=== PATIENT | male | born 1995 | race African-American/Black ===

== ENCOUNTER → 2019-08-23 | Outpatient (CLI) | payer OTHER ==
--- NOTE | 2019-08-23 10:19 | US ---
EXAMINATION TYPE: US scrotum with doppler. TECHNIQUE: Grayscale and color Doppler Duplex imaging performed of the scrotum. DATE OF EXAM: 08/23/2019 COMPARISON: NONE CLINICAL HISTORY: 24-year-old male R19.09 PELVIC SWELLING. Swelling left groin that comes and goes FINDINGS: EXAM MEASUREMENTS: TESTICLES: Right Testicle: 4.1 x 2.4 x 2.7 cm Left Testicle: 4.1 x 2.2 x 2.5 cm EPIDIDYMIS HEAD: Right Epididymis: 1.2 cm with a 5 mm cyst. Left Epididymis: 1.3 cm Doppler performed to assess for testicular vascularity; good bilateral color flow and waveforms are s een. There is no evidence of testicular torsion. Presence of hydroceles: Yes, bilaterally, small on the right and [id number] on the left. Presence of varicoceles: Yes, bilaterally, small on both sides Flatwork Finisher notes: At patient's left groin, area of swelling, just superior to the iliac vessels, the re is a discrete hypoechoic area that appears to move upon valsalva. On the saved images, the pipeline integrity engineer indicates that there is peristalsis in this area. IMPRESSION: 1. No sonographic evidence for testicular torsion or epididymoorchitis. 2. Small bilateral varicoceles. Small hydrocele on the right and [id number] on the left. 3. Targeted scanning along the left groin at the area of swelling shows a possible bowel containing i nguinal hernia as the pipeline integrity engineer indicates that the structure moves and has peristalsis.
--- NOTE | 2019-08-30 11:27 | HM ---
HOLTER MONITOR REPORT 48 HOUR HOLTER MONITOR: Baseline rhythm is a sinus mechanism with borderline intraventricular conduction delay. The average rate was 67 beats per minute. Minimum was 41, maximum 130 beats per minute. Ventricular ectopic activity was present in the form of rare single PACs, and single PVCs. There was no episode of atrial fibrillation. Symptoms of chest pressure did not correlate with any dysrhythmia. CONCLUSION: 1. Sinus mechanism with baseline rhythm. 2. Rare ventricular ectopic activity. 3. Rare supraventricular ectopic activity. 4. Symptoms did not correlate with any dysrhythmia. MMODL / IJN: [id number] /
== END | disposition home or self-care (01) ==
LOC: RADUSWWP 09:11
PROVIDERS: ATTEND Internal Medicine
DX: I86.1 Scrotal varices (principal); N43.3 Hydrocele, unspecified; I49.3 Ventricular premature depolarization
CPT/HCPCS: 76870; 93225; 93226; 93975

== ENCOUNTER → 2020-03-10 | Outpatient (CLI) | payer OTHER ==
--- NOTE | 2020-03-10 08:44 | US ---
EXAMINATION TYPE: US abdomen complete DATE OF EXAM: 03/10/2020 COMPARISON: NONE CLINICAL HISTORY: 24-year-old male R74.01 Elevated Liver Enzymes. TECHNIQUE: Multiple sonographic images of the abdomen are obtained. FINDINGS: EXAM MEASUREMENTS: Liver Length: 13.0 cm Gallbladder Wall: 0.2 cm CBD: 0.4 cm Spleen: 8.8 cm Right Kidney: 10.5 x 4.4 x 4.4 cm Left Kidney: 11.2 x 4.6 x 5.4 cm Pancreas: Hypoechoic area visualized in the pancreatic body measuring 0.8 x 0.5 x 0.6 cm Liver: wnl Gallbladder: wnl Evidence for sonographic Hollis's sign: No CBD: wnl Spleen: wnl Right Kidney: No hydronephrosis or masses seen Left Kidney: No hydronephrosis. Round heterogeneous echogenic area visualized in the central mid to lower pole measuring 2.5 x 2.0 x 1.8 cm Upper IVC: wnl Abd Aorta: wnl IMPRESSION: 1. An 8 mm hypoechoic area within the body of the pancreas. Pancreas MRI recommended to further evalu ate and exclude a small mass. 2. Round 2.5 cm heterogeneous hyperechoic area, possible lesion central mid to lower pole left kidney . This can also be assessed on the abdominal MRI to exclude a kidney mass. 3. Overall homogeneous appearance to the liver. No gallstones or biliary ductal dilatation.
== END | disposition home or self-care (01) ==
LOC: RADUSWWP 07:44
PROVIDERS: ATTEND Internal Medicine
DX: R93.3 Abnormal findings on diagnostic imaging of other parts of digestive tract (principal); R93.2 Abnormal findings on diagnostic imaging of liver and biliary tract
CPT/HCPCS: 76700

== ENCOUNTER → 2020-03-10 | Outpatient (CLI) | payer OTHER ==
--- NOTE | 2020-03-10 09:12 | CT ---
EXAMINATION TYPE: CT angio chest DATE OF EXAM: 03/10/2020 8:57 AM COMPARISON: None. HISTORY: Chest pain and pressure. Elevated liver enzymes. CT DLP: 225.4 mGycm Automated exposure control for dose reduction was used. CONTRAST: CTA scan of the thorax is performed with IV Contrast, patient injected with 100 mL of Isovue 370, pul monary embolism protocol. MIP images are created and reviewed. FINDINGS: LUNGS: The lungs are grossly clear, there is no concerning parenchymal mass or nodule identified. T here is no pleural effusion or pneumothorax seen. The tracheobronchial tree is patent. MEDIASTINUM: There is suboptimal bolus with more dense contrast in the aorta versus the pulmonary art eries, there is no central pulmonary embolism, smaller segmental subsegmental PE not entirely exclude d on this study though not visualized. There are no suspicious greater than 1 cm hilar or mediastina l lymph nodes. No cardiomegaly or pericardial effusion is seen. Some residual thymus tissue anterio r superior mediastinum is felt present. OTHER: Visualized liver is mildly prominent and hypodense. Possible fatty infiltration. IMPRESSION: Suboptimal study without pulmonary embolism. No acute pulmonary process.
[2020-03-10 09:15] LABS: ALT 51 U/L (4-49); AST 37 U/L (17-59); Albumin 4.2 g/dL (3.5-5.0); Alkaline Phosphatase 77 U/L (38-126); Bilirubin, Delta 0.2 mg/dL (0.0-0.2); Bilirubin,Unconjugated 0.3 mg/dL (0.0-1.1); GGT 25 U/L (15-73); Total Bilirubin 0.5 mg/dL (0.2-1.3); Total Protein 7.1 g/dL (6.3-8.2)
[2020-03-10 09:29] LABS: C Reactive Protein <5.0 mg/L (<10.0)
== END | disposition home or self-care (01) ==
LOC: RADCTMAIN 08:11
PROVIDERS: ATTEND Internal Medicine
DX: R07.9 Chest pain, unspecified (principal); R74.01 Elevation of levels of liver transaminase levels
CPT/HCPCS: 80076; 82248; 82977; 86140; 71275; 36415; Q9967

== ENCOUNTER → 2020-04-26 | Outpatient (CLI) | payer OTHER ==
--- NOTE | 2020-04-26 22:35 | MR ---
EXAMINATION TYPE: MR MRCP DATE OF EXAM: 04/26/2020 COMPARISON: CTA chest March 10, 2020. Complete abdominal ultrasound March 10, 2020 HISTORY: Pancreatic lesion Standard multiplanar, multisequence MRI departmental protocol Multiplanar, multisequence images of the abdomen were acquired. Diffusion weighted imaging was perfor med. Images performed without contrast. Thin and thick slice MRCP imaging performed on the MRI scann er. FINDINGS: Exam is suboptimal as patient unable to hold breath. Liver/pancreas/gallbladder/biliary system: Liver is normal in size. No significant signal dropout to suggest diffuse fatty infiltration. No concerning solid or cystic mass. Gallbladder unremarkable with out intraluminal gallstones. Pancreas is normal in size. No obvious solid or cystic mass with particu lar attention to the proximal body just anterior to the splenic vein and SMV confluence at area of ul trasound concern. MRCP images show no suspicious hepatic or extra hepatic biliary dilatation. Pancrea tic duct not well visualized due to poor distention. No suspicious cystic mass is seen. Visualized po rtion of the pancreatic duct in the body and tail are within normal limits. Pancreatic duct not well seen in head. Motion artifact degradation noted. Other: Lung bases remain clear. The spleen and both adrenal glands are within normal limits. No intra -abdominal ascites. No suspicious small or large bowel dilatation. Visualized osseous structures are intact. Kidney show no concerning renal mass or hydronephrosis with particular attention to left kidn ey mid to lower pole level. IMPRESSION: Suboptimal study as patient unable to hold breath. No obvious solid or cystic mass in the pancreas with particular attention to area of ultrasound concern. No suspicious mass in either kidne y with particular attention to mid to lower pole of the left kidney. Unremarkable study.
== END ==
LOC: RADMRIMAIN 13:09
PROVIDERS: ATTEND Internal Medicine Hematology & Oncology
DX: K86.9 Disease of pancreas, unspecified (principal)
CPT/HCPCS: 74181

== ENCOUNTER 2020-07-18 08:50 | Day surgery (SDC) | payer OTHER ==
[2020-07-12 15:04] VITALS: BMI 25.5
[~2020-07-18 08:50] MED LIST: LIDOCAINE 1% (10MG/ML) FOR IV START INTRADERMA PRN; MIDAZOLAM 2 MG/2 ML VIAL IV PRN
[2020-07-18] MEDS: LACTATED RINGERS 1,000 ML IV SCH ×2 (09:09→09:33)
[2020-07-18 09:33] VITALS: TEMP 98.4
[2020-07-18 09:42] LABS: Basophils % (A) 0 %; Eosinophils # (A) 0.3 k/uL (0-0.7); Eosinophils % (A) 5 %; HCT 47.3 % (39.0-53.0); HGB 16.1 gm/dL (13.0-17.5); Lymphocytes # (A) 2.2 k/uL (1.0-4.8); Lymphocytes % (A) 44 %; MCH 28.3 pg (25.0-35.0); MCHC 34.1 g/dL (31.0-37.0); MCV 83.1 fL (80.0-100.0); Mean Platelet Volume 9.1; Monocytes # (A) 0.3 k/uL (0-1.0); Monocytes % (A) 7 %; Neutrophils # (A) 2.1 k/uL (1.3-7.7); Neutrophils % (A) 41 %; Platelet Count 165 k/uL (150-450); RDW 13.1 % (11.5-15.5)
[2020-07-18] MEDS: HEPARIN SODIUM,PORCINE/PF 5,000 UNIT/0.5 ML SYRINGE SQ PRN ×2 (09:45→10:07)
[2020-07-18] MEDS: ONDANSETRON 4 MG/2 ML VIAL IVP ONE ×2 (09:45→10:07)
[2020-07-18] MEDS: DEXAMETHASONE SOD PHOSPHATE 4 MG/ML 1 ML VIAL IV ONE ×2 (09:45→10:06)
[2020-07-18] MEDS ORDERED: ROCURONIUM 10 MG/ML (5 ML VIAL) IV ONE (10:14)
[2020-07-18] MEDS ORDERED: fentaNYL (PF) 50 MCG/ML 2 ML AMP ONE (10:14)
[2020-07-18] MEDS ORDERED: NEOSTIGMINE 1 MG/ML 10 ML VIAL ONE (10:14)
[2020-07-18] MEDS ORDERED: KETOROLAC 15 MG/ML 1 ML VIAL ONE (10:14)
[2020-07-18] MEDS ORDERED: GLYCOPYRROLATE 0.2 MG/ML 2 ML VIAL ONE (10:14)
[2020-07-18] MEDS ORDERED: PROPOFOL 10 MG/ML 20 ML VIAL IV ONE (10:14)
[2020-07-18] MEDS ORDERED: LIDOCAINE 1% INJ 10MG/ML (20 ML MDV) ONE (10:14)
[2020-07-18] MEDS ORDERED: MIDAZOLAM 2 MG/2 ML VIAL ONE (10:14)
[2020-07-18] MEDS ORDERED: SUCCINYLCHOLINE CHLORIDE 100 MG/5 ML SYR IV ONE (10:14)
[2020-07-18] MEDS ORDERED: LIDOCAINE 1%-EPI 1:100,000 20 ML VIAL SQ ONE ×2 (10:36)
--- NOTE | 2020-07-18 11:42 | P.OP ---
Date of Procedure: 07/18/20 Preoperative Diagnosis: Bilateral inguinal hernia Postoperative Diagnosis: Bilateral inguinal indirect hernia Procedure(s) Performed: Robotic bilateral inguinal hernia repair with mesh placement Implants: [employer]ien Progrip Mesh x2 Anesthesia: GETA Surgeon: Iván Orozco Pathology: none sent Condition: stable Disposition: same day Indications for Procedure: 25-year-old male presented to the surgery clinic with complaints of groin pain. On exam, he was noted to have a significant bulge in the left groin along with small palpable hernia on the right side. With finding of bilateral inguinal hernia, patient has opted for robotic bilateral inguinal hernia repair. He was explained the risks, benefits and alternatives to procedure. He did provide consent prior to attending the operating suite Operative Findings: Bilateral inguinal indirect hernia, left side larger than right side Description of Procedure: The patient was brought into the operating suite and placed in supine position. After general endotracheal anesthesia was induced, Ramirez catheter was placed under sterile conditions. Arms were then tucked side bilaterally and all pressure points were padded. SCDs were also placed in bilateral lower extremit ies and were working throughout the case. Preoperative antibiotics were given prior to the incision. A timeout was performed with all team members in agreement with the correct patient, procedure and location. A super umbilical incision was made approximately 20/70 superior to the symphysis. The abdomen was then entered and an 8 mm trocar was placed. At this point pneumoperitoneum was achieved. 3 additional incisions were made approximately 11 7 m lateral to the supraumbilical incision and 8 mm trochars were placed. The patient was then placed in Trendelenburg position on the hernia site was clearly visualized bilaterally. Both were noted to be indirect inguinal hernias. The left side was noted to be significantly larger than the right side. The robot was undocked appropriately. Incision was then made just lateral to the medial umbilical ligament on the left side with the monopolar scissors and the peritoneal flap was created and was taken down towards Christopher's ligament. The flap was then extended laterally. Attention was then turned to the indirect inguinal hernia. The sac was then freed from the cord and the cord structures were preserved. At this point, the indirect hernia was reduced. Once the entire space was appropriately dissected out, attention was turned to the right side. Incision was then just lateral to the medial umbilical ligament on the right side with the monopolar scissors and the peritoneal flap was created and was taken down towards its ligament. The flap was then extended laterally. Attention was then turned to the direct inguinal hernia. The sac was then freed from the cord preserving the cord structures. At this point, the indirect hernia was reduced. Once entire space was appropriately dissected out, we brought the laparoscopic parietex progrip mesh and unrolled both the meshes over the hernia sites. Once appropriately in place, the peritoneal flap was closed using running 20V lock suture. Once this was completed we removed all the robotic instruments and undocked the robot. The super umbilical fascial incision was closed with the over the suture using a Oliver Henriquez device. This was done under laparoscopic guidance. All skin incisions were then closed with 4-0 Vicryl suture. The Ramirez catheter was removed. The patient was awakened and taken to postanesthesia care unit in stable condition.
[2020-07-18] MEDS: HYDROmorphone 0.5 MG/0.5 ML SYRINGE IVP PRN ×4 (12:05→12:44)
[2020-07-18] MEDS ORDERED: LACTATED RINGERS 1,000 ML IV ONE ×2 (12:17)
[2020-07-18] MEDS ORDERED: HYDROcodone/APAP 5-325MG 1 EACH TAB ONE (13:41)
[2020-07-18] MEDS ORDERED: HYDROcodone/APAP 5-325MG 1 EACH TAB PO ONE (13:45)
[2020-07-18 14:20] VITALS: BP 126/62; PULSE 66; RESP 20
== END 2020-07-18 15:07 | disposition home or self-care (01) ==
LOC: OR 08:50
PROVIDERS: ATTEND Surgery
DX: K40.20 Bilateral inguinal hernia, without obstruction or gangrene, not specified as recurrent (principal)
CPT/HCPCS: 85025; 49650; C1781; J2250; J1100; J2710; J0690; J2405; J2001; J3010; J1885; J0330; J2704; J1170; J1644

== ENCOUNTER → 2020-12-14 | Outpatient (CLI) | payer OTHER ==
--- NOTE | 2020-12-14 14:31 | XR ---
Abdomen HISTORY: R 10.9 Frontal view of the abdomen on 2 images correlated prior abdomen dated 06/08/2002 There is retained fecal debris throughout the distribution of the colon. There is no evidence of miki l obstruction or pneumoperitoneum. No pathologic calcification. Bone mineralization is normal. Lung b ases are clear. IMPRESSION: Correlate for fecal stasis.
== END | disposition home or self-care (01) ==
LOC: RADXRMAIN 13:20
PROVIDERS: ATTEND Internal Medicine
DX: R10.9 Unspecified abdominal pain (principal)
CPT/HCPCS: 74018

== ENCOUNTER → 2021-07-25 | Outpatient (CLI) | payer OTHER ==
--- NOTE | 2021-07-26 06:55 | CT ---
EXAMINATION TYPE: CT abdomen pelvis w con DATE OF EXAM: 07/25/2021 COMPARISON: MRI/MRCP April 26, 2020. Ultrasound abdomen March 10, 2020. HISTORY: F/U from last years CT/MRI, poss spot on kidneys. CT DLP: 885.30 mGycm, Automated Exposure Control for Dose Reduction was Utilized. CONTRAST: CT scan of the abdomen and pelvis is performed with oral and with IV Contrast, patient injected with 100 mL of Isovue 300. FINDINGS: Exam remains slightly suboptimal as patient unable to hold still LUNG BASES: No significant abnormality is appreciated. LIVER/GB: No significant abnormality is appreciated. PANCREAS: No significant abnormality is seen. SPLEEN: No significant abnormality is seen. ADRENALS: No significant abnormality is seen. KIDNEYS: Symmetric corticomedullary uptake and excretion without hydronephrosis seen bilaterally. The re is oval heterogeneous slightly hyperdense lesion centrally in the mid to lower pole left kidney me asuring 3.7 x 2.9 cm axial image 36 series 3, this is slightly lower density than the adjacent renal cortex. Lesion likely slightly increased in size from abdominal ultrasound where hyperechoic mass was present. Lesion not well seen on noncontrast MRI, in retrospect likely present coronal image 25. BOWEL: Suboptimal evaluation as enteric contrast does not reach colonic level limiting evaluation of distal bowel. No suspicious small or large bowel dilatation is seen. Mild wall thickening and poorly distended left and sigmoid colon extending into the rectum. No significant surrounding fat stranding. PROSTATE/SEMINAL VESICLES: No gross abnormality seen. LYMPH NODES: No greater than 1cm abdominal or pelvic lymph nodes are appreciated. OSSEOUS STRUCTURES: No significant abnormality is seen. OTHER: No significant additional abnormality is seen. IMPRESSION: Suspicious well-defined oval hyperdense mass mid to lower pole left kidney felt enlarged in size from 2020. Not typical appearance of renal cell carcinoma but solid mass or neoplasm cannot b e excluded. Advise specialist referral and follow-up.
== END | disposition home or self-care (01) ==
LOC: RADCTMAIN 16:35
PROVIDERS: ATTEND Family Medicine
DX: D41.02 Neoplasm of uncertain behavior of left kidney (principal)
CPT/HCPCS: 74177; Q9967

== ENCOUNTER → 2021-08-31 | Outpatient (CLI) | payer OTHER ==
--- NOTE | 2021-08-31 16:23 | MR ---
MR kidney with and without contrast HISTORY: D 41.[address] scan 07/25/2021, ultrasound 03/10/2020, MRCP 04/26/2020 Multiplanar multisequence and postcontrast images obtained to the kidneys following 9 cc Gadavist IV. FINDINGS: There is motion, artifact on the exam which may limit evaluation The previously identified mass is again noted within the left kidney and show some areas of increased signal on precontrast T1-weighted images, there is some intermediate signal as well as some mixed in termediate and increased signal on T2-weighted sequences at the lower pole of the left kidney. The le maryanne measures approximately 3 cm in cephalad to caudal and AP dimensions and is well-circumscribed. T here is restricted diffusion. Difficult to exclude enhancement. The lesion has grown compared to prior MRI where it measured approximately 2.4 cm in greatest dimensi on. No retroperitoneal adenopathy. Right kidney is unremarkable. Adrenal glands are within normal limits. IMPRESSION: There are some limitations the exam. Indeterminate mass involving the left kidney has eliu wn in the interval as described.
== END | disposition home or self-care (01) ==
LOC: RADMRIMAIN 08:03
PROVIDERS: ATTEND Urology
DX: G31.9 Degenerative disease of nervous system, unspecified (principal)
CPT/HCPCS: 74183; A9585

== ENCOUNTER → 2022-03-21 | Outpatient (CLI) | payer OTHER ==
--- NOTE | 2022-03-21 15:19 | XR ---
EXAMINATION TYPE: XR chest 2V DATE OF EXAM: 03/21/2022 COMPARISON: 05/13/1997 and CTA chest from 03/10/2020 HISTORY: Presurgical left renal mass TECHNIQUE: Frontal and lateral views of the chest are obtained. FINDINGS: The heart is not enlarged and there is no pulmonary vascular congestion. The lungs are naima ar and there is no pleural effusion. No pneumothorax. No acute osseous abnormality. IMPRESSION: Normal chest.
[2022-03-21 19:26] LABS: Basophils # (A) 0.02 X 10*3/uL (0.00-0.10); Basophils % (A) 0.3 %; Eosinophils # (A) 0.13 X 10*3/uL (0.04-0.35); Eosinophils % (A) 2.1 %; HCT 46.8 % (39.6-50.0); HGB 14.8 g/dL (13.0-17.0); Immature Grans, Automated 0.2 %; Lymphocytes # (A) 2.45 X 10*3/uL (0.90-5.00); Lymphocytes % (A) 39.8 %; MCHC 31.6 g/dL (32.0-37.0); MCV 85.4 fL (80.0-97.0); Mean Platelet Volume 12.3 fL (9.5-12.2); Monocytes # (A) 0.46 X 10*3/uL (0.20-1.00); Monocytes % (A) 7.5 %; NRBC Per 100 WBC 0 /100 WBCS (0.0-0.0); Neutrophils # (A) 3.08 X 10*3/uL (1.80-7.70); Neutrophils % (A) 50.1 %; Platelet Count 183 X 10*3/uL (140-440); RBC 5.48 X 10*6/uL (4.40-5.60); RDW 13.6 % (11.5-14.5); WBC 6.15 X 10*3/uL (4.50-10.00)
[2022-03-21 19:55] LABS: African American GFR (CKD) 99.8 (60.0-200.0); Anion Gap 11.3 mmol/L (10.00-18.00); BUN/Creat Ratio 14.62 Ratio (12.00-20.00); Blood Urea Nitrogen 17.1 mg/dL (9.0-27.0); Calcium 9.8 mg/dL (8.7-10.3); Carbon Dioxide 25.7 mmol/L (20.0-27.5); Non-African American GFR(CKD) 86.1 (60.0-200.0); Potassium 4.3 mmol/L (3.5-5.5)
[2022-03-22 11:07] LABS: Appearance,Urine Clear (Clear); Bilirubin,Urine Negative (Negative); Blood,Urine Negative (Negative); Color,Urine Yellow; Glucose,Urine (UA) Negative (Negative); Ketones,Urine Negative (Negative); Leukocyte Esterase,Urine Negative (Negative); Nitrite,Urine Negative (Negative); PH, Urine 6.5 (5.0-8.0); Protein,Urine Negative (Negative); Specific Gravity,Urine 1.026 (1.001-1.035); Urobilinogen,Urine <2.0 mg/dL (<2.0)
== END | disposition home or self-care (01) ==
LOC: LABPAT 13:38
PROVIDERS: ATTEND Urology
DX: Z01.812 Encounter for preprocedural laboratory examination (principal); D41.02 Neoplasm of uncertain behavior of left kidney; R09.89 Other specified symptoms and signs involving the circulatory and respiratory systems; R53.83 Other fatigue
CPT/HCPCS: 71046; 80048; 81003; 85025; 87086; 93005

== ENCOUNTER → 2022-09-24 | Outpatient (CLI) | payer OTHER ==
--- NOTE | 2022-09-24 18:56 | MR ---
EXAMINATION TYPE: MR kidney wo/w con DATE OF EXAM: 09/24/2022 5:01 PM INDICATION: Patient age:Male; 27 years old; Reason for study: C64.2 MALIGNANT NEOPLASM OF LEFT KIDNEY, EXCEPT RE; PHH. Malignant neoplasm left ki dney, chest pain, Partial nephrectomy Left side COMPARISON: MRI 08/31/2021, MRCP 04/26/2020 TECHNIQUE: Multiplanar multi-sequence imaging was performed without contrast. Post contrast imaging was performed. Post IV contrast subtraction images were also submitted for review. IV Contrast: 9.5 cc Gadavist FINDINGS: LOWER CHEST: No gross irregularity. ABDOMEN Liver: Unremarkable. Gallbladder and Bile ducts: Unremarkable. Pancreas: Unremarkable. Spleen: Unremarkable. Adrenal glands: Unremarkable. Kidneys: Right kidney: No evidence of hydronephrosis or mass. Left kidney: Posttreatment changes to the left kidney previous mass. No abnormal postcontrast enhance ment within the surgical bed, no abnormal soft tissue in the surgical bed. No new masses identified. No hydronephrosis. Stomach and Bowel: Unremarkable as visualized. Peritoneum: No evidence of pneumoperitoneum or free fluid. Vasculature: Unremarkable. No aortic aneurysm. Musculoskeletal: The osseous structures appear intact. Lymph Nodes: No gross evidence for lymphadenopathy. Abdominal wall: Unremarkable. IMPRESSION: Post treatment changes to the left kidney, No evidence for recurrence or metastatic disease.
== END | disposition home or self-care (01) ==
LOC: RADMRIMAIN 15:41
PROVIDERS: ATTEND Urology
DX: C64.2 Malignant neoplasm of left kidney, except renal pelvis (principal); R07.9 Chest pain, unspecified; Z90.5 Acquired absence of kidney; Z98.890 Other specified postprocedural states
CPT/HCPCS: 74183; A9585

== ENCOUNTER → 2023-07-30 | Outpatient (CLI) | payer OTHER ==
--- NOTE | 2023-07-30 19:29 | MR ---
EXAMINATION TYPE: MR kidney wo/w con DATE OF EXAM: 07/30/2023 10:37 AM CLINICAL INDICATION:Male, 28 years old with history of C64.2 MALIGNANT NEOPLASM OF LEFT KIDNEY, EXCEP T RE; , Hx of cancer, pain COMPARISON: MRI scan abdomen from 09/24/2022. TECHNIQUE: Multiplanar multi-sequence imaging was performed without contrast. Post contrast imaging was performed. Post IV contrast subtraction images were also submitted for review. IV Contrast: 9.5 cc Gadavist FINDINGS: LOWER CHEST: No gross irregularity. ABDOMEN Liver: Unremarkable. Gallbladder and Bile ducts: Unremarkable. Pancreas: Unremarkable. Spleen: Unremarkable. Adrenal glands: Stable tiny lesion at the medial aspect of the left adrenal gland. Kidneys: Right kidney: No evidence of hydronephrosis or mass. Left kidney: Posttreatment changes to the left kidney with nephrectomy from previous mass. No abnorma l postcontrast enhancement within the surgical bed, no abnormal soft tissue in the surgical bed. No n ew masses identified. No hydronephrosis. Stomach and Bowel: Unremarkable as visualized. Peritoneum: No evidence of pneumoperitoneum or free fluid. Vasculature: Unremarkable. No aortic aneurysm. Musculoskeletal: The osseous structures appear intact. Lymph Nodes: No gross evidence for lymphadenopathy. Abdominal wall: Unremarkable. IMPRESSION: Stable postsurgical changes to the left kidney, No evidence for recurrence or metastatic disease.
== END | disposition home or self-care (01) ==
LOC: RADMRIMAIN 09:22
PROVIDERS: ATTEND Urology
DX: C64.2 Malignant neoplasm of left kidney, except renal pelvis (principal)
CPT/HCPCS: 74183; A9585